=== PATIENT | female | born 1970 | race Caucasian/White ===

== ENCOUNTER 2017-02-20 11:24 | Day surgery (SDC) | payer BC ==
[~2017-02-20 11:24] MED LIST: Lactated Ringers 1,000 ML IV SCH; Lidocaine 1%/Sod Bicarbonate in NS 8.4% 1 ML Syringe IV PRN; Sodium Chloride 0.9% 10 ML Syringe FLUSH PRN
[2017-02-20] MEDS ORDERED: Midazolam 1 MG/ML 2 ML SDV ONE (12:08)
[2017-02-20] MEDS ORDERED: fentaNYL 250 MCG/5 ML SDV ONE (12:08)
[2017-02-20] MEDS ORDERED: Propofol 200 MG/20 ML SDV ONE ×2 (12:08)
[2017-02-20] MEDS ORDERED: Lidocaine 1% 4 ML ONE (12:09)
--- NOTE | 2017-02-20 12:22 | PCM.PREANE ---
Preanesthetic Assessment - Procedure Proposed Procedure: Right Achilies Debridement, Rt Calcaneal exosectomy - Anesthesia/Transfusion/Family Hx Anesthesia History: Prior Anesthesia Without Reaction Family History of Anesthesia Reaction: No Transfusion History: Prior Transfusion Without Reaction Intubation History: Unknown - Review of Systems General: No Symptoms Pulmonary: No Symptoms Cardiovascular: No Symptoms Gastrointestinal: No Symptoms Neurological: No Symptoms Other: Reports: None - Physical Assessment NPO Status Date: 02/19/17 NPO Status Time: 21:00 O2 Sat by Pulse Oximetry: 99 Respiratory Rate: 16 Vital Signs: Last Vital Signs Temp 37.3 C 02/20/17 11:35 Pulse 70 02/20/17 11:35 Resp 16 02/20/17 11:35 BP 119/84 02/20/17 11:35 Pulse Ox 99 02/20/17 11:35 Height: 1.65 m Weight: 82.554 kg ASA Class: 2 Mental Status: Alert & Oriented x3 Airway Class: Mallampati = 1 Dentition: Reports: Normal Dentition Thyro-Mental Finger Breadths: 3 Mouth Opening Finger Breadths: 5 ROM/Head Extension: Full Lungs: Clear to Auscultation, Normal Respiratory Effort Cardiovascular: Regular Rate, Regular Rhythm - Lab Values: Laboratory Last Values Urine HCG, Qual Negative (NEGATIVE) 02/20/17 11:35 MRSA (PCR) Negative 02/11/17 15:33 - Allergies Allergies/Adverse Reactions: Allergies Allergy/AdvReac Type Severity Reaction Status Date / Time cinnamon Allergy Cannot Verified 02/20/17 12:19 Remember orange Allergy Cannot Verified 02/20/17 12:19 Remember - Blood Blood Available: No Product(s) Available: None - Anesthesia Plan Pre-Op Medication Ordered: None - Acknowledgements Anesthesia Type Planned: General Anesthesia Pt an Appropriate Candidate for the Planned Anesthesia: Yes Alternatives and Risks of Anesthesia Discussed w Pt/Guardian: Yes Pt/Guardian Understands and Agrees with Anesthesia Plan: Yes PreAnesthesia Questionnaire HEENT History: Reports: None Cardiovascular History: Reports: None Respiratory History: Reports: None Gastrointestinal History: Reports: None Genitourinary History: Reports: Other (See Below) Other Genitourinary History: only has one kidney -congential right kidney 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: Other (See Below) Other OB/BYN History: irregular menses, menorrhagia, hysteroscopy Musculoskeletal History: Reports: Other (See Below) Neurological History: Reports: None Psychiatric History: Reports: Anxiety, Depression Endocrine/Metabolic History: Reports: Hypothyroidism Hematologic History: Reports: Anemia Immunologic History: Reports: None Oncologic (Cancer) History: Reports: None - Past Surgical History Head Surgeries/Procedures: Reports: None HEENT Surgical History: Reports: None Cardiovascular Surgical History: Reports: None Respiratory Surgical History: Reports: None GI Surgical History: Reports: None Female Surgical History: Reports: Section, D&C, Endometrial Ablation Endocrine Surgical History: Reports: None Neurological Surgical History: Reports: None Musculoskeletal Surgical History: Reports: Other (See Below) Other Musculoskeletal Surgeries/Procedures:: 2 back surgeries, right ankle surgery, foot surgery Oncologic Surgical History: Reports: None Dermatological Surgical History: Reports: Plastic Surgical Reconstruction/Repair - SUBSTANCE USE Smoking Status *Q: Former Smoker Recreational Drug Use History: No - HOME MEDS Home Medications: Home Meds Levothyroxine [Synthroid] 50 mcg PO DAILY 05/28/15 [History] Multivitamin [Multivitamins] 1 cap PO DAILY 05/28/15 [History] Escitalopram [Lexapro] 20 mg PO DAILY 02/19/17 [History] busPIRone [Buspar] 15 mg PO BID 02/19/17 [History] rOPINIRole [Requip] 2 mg PO BEDTIME 02/19/17 [History] Aspirin 325 mg PO BID #84 tablet 02/20/17 [Rx] Cyclobenzaprine [Flexeril] 10 mg PO Q8H PRN #40 tablet 02/20/17 [Rx] Hydrocodone/Acetaminophen [[place] 5-325 Tablet] 1 - 2 each PO Q6H PRN #40 tablet 02/20/17 [Rx] - CURRENT (IN HOUSE) MEDS Current Meds: Current Medications Lactated Ringer's (Ringers, Lactated) 1,000 mls @ 125 mls/hr IV ASDIRECTED MARK Stop: 02/20/17 16:00 Lidocaine/Sodium Bicarbonate (Buffered Lidocaine 1% In Ns 8.4%) 0.25 ml IV ONETIME PRN PRN Reason: Prior to IV Start Stop: 02/20/17 16:00 Sodium Chloride (Saline Flush) 10 ml FLUSH ASDIRECTED PRN PRN Reason: Keep Vein Open Stop: 02/20/17 16:00 Discontinued Medications Fentanyl (Sublimaze) Confirm Administered Dose 250 mcg .ROUTE .STK-MED ONE Stop: 02/20/17 12:09 Lidocaine HCl (Xylocaine-Mpf 1%) Confirm Administered Dose 4 mls @ as directed .ROUTE .STK-MED ONE Stop: 02/20/17 12:10 Midazolam HCl (Versed 1 Mg/Ml) Confirm Administered Dose 2 mg .ROUTE .STK-MED ONE Stop: 02/20/17 12:09 Propofol (Diprivan 20 Ml) Confirm Administered Dose 200 mg .ROUTE .STK-MED ONE Stop: 02/20/17 12:09 Propofol (Diprivan 20 Ml) Confirm Administered Dose 200 mg .ROUTE .STK-MED ONE Stop: 02/20/17 12:09
[2017-02-20] MEDS ORDERED: Lactated Ringers 1,000 ML ONE ×2 (12:51→14:12)
[2017-02-20] MEDS ORDERED: Rocuronium 50 MG/5 ML Vial ONE (12:57)
[2017-02-20] MEDS ORDERED: Ketorolac 30 MG/ML SDV ONE (12:57)
[2017-02-20] MEDS ORDERED: Ondansetron 4 MG/2 ML SDV ONE (12:57)
[2017-02-20] MEDS ORDERED: Dexamethasone 4 MG/ML SDV ONE (12:57)
[2017-02-20] MEDS ORDERED: HYDROmorphone 1 MG/ML Syringe ONE ×2 (13:01→14:23)
[2017-02-20] MEDS ORDERED: Bupivacaine 0.25% 30 ML SDV ONE (13:05)
[2017-02-20] MEDS ORDERED: fentaNYL 100 MCG/2 ML SDV IVPUSH PRN (14:19)
[2017-02-20] MEDS ORDERED: diphenhydrAMINE 50 MG/ML SDV IVPUSH PRN (14:19)
[2017-02-20] MEDS ORDERED: HYDROmorphone 0.5 MG/0.5 ML Syringe IVPUSH PRN (14:19)
[2017-02-20] MEDS ORDERED: Meperidine PF 50 MG/ML Syringe IVPUSH PRN (14:19)
[2017-02-20] MEDS ORDERED: Ondansetron 4 MG/2 ML SDV IVPUSH PRN (14:19)
[2017-02-20] MEDS ORDERED: Midazolam 1 MG/ML 2 ML SDV IVPUSH PRN (14:19)
[2017-02-20] MEDS ORDERED: fentaNYL 100 MCG/2 ML SDV ONE (14:30)
[2017-02-20] MEDS ORDERED: Neostigmine Methylsulfate 10 MG/10 ML MDV ONE (14:32)
[2017-02-20] MEDS ORDERED: cloNIDine 1,000 MCG/10 ML SDV ONE ×2 (15:04)
[2017-02-20] MEDS ORDERED: Metoclopramide 10 MG/2 ML SDV ONE (15:33)
[2017-02-20] MEDS ORDERED: Promethazine 6.25 MG in Sodium Chloride 0.9% 9 ML IV PRN (15:48)
--- NOTE | 2017-02-20 15:52 | PCM.POSTAN ---
POST ANESTHESIA ASSESSMENT - MENTAL STATUS Mental Status: Alert - VITAL SIGNS Pulse Rate: 108 SaO2: 98 Resp Rate: 18 Blood Pressure: 123/73 Temperature: 97.1 C - RESPIRATORY Respiratory Status: Respiratory Rate WNL, Airway Patent, O2 Saturation Stable - CARDIOVASCULAR CV Status: Pulse Rate WNL, Blood Pressure Stable - GASTROINTESTINAL GI Status: No Symptoms - PAIN Pain Score: 0 - POST OP HYDRATION Hydration Status: Adequate & Stable
--- NOTE | 2017-02-20 16:56 | CR ---
Right ankle: Seven fluoroscopic spot views were obtained of the calcaneus. Study shows surgery at the Achilles tendon attachment. Incidental plantar spur is seen. Fluoroscopy time is given as 13.6 seconds. Impression: 1. Operative study as noted above. Diagnostic code #2
[2017-02-20] MEDS ORDERED: Acetaminophen/HYDROcodone 325-5 MG Tab PO ONE (17:10)
[2017-02-20 18:05] VITALS: BP 116/69
--- NOTE | 2017-02-27 08:30 | PCM.OPNOTE ---
- General Post-Op/Procedure Note Date of Surgery/Procedure: 02/20/17 Operative Procedure(s): right achilles debridement with calcaneal ostectomy Pre Op Diagnosis: right achilles tendonitis with calcaneal spur Post-Op Diagnosis: Same Anesthesia Technique: General ET Tube, Local Primary Surgeon: Damien Wheeler Anesthesia Provider: Jessy Patrick Cushion Maker Hand: Sandrita Jiménez EBL in mLs: 5 Complications: None Condition: Good
--- NOTE | 2017-02-27 09:16 | OR ---
DATE OF OPERATION: 02/20/2017 SURGEON: Damien Wheeler MD OPERATION PERFORMED: Right Achilles tendon debridement of the calcaneal ostectomy. PREOPERATIVE DIAGNOSIS: Right Achilles tendinitis with calcaneal spur. POSTOPERATIVE DIAGNOSIS: Right Achilles tendinitis with calcaneal spur. ANESTHESIA: General endotracheal intubation with local. ANESTHESIA PROVIDER: Domingo Echevarria. DYEING MACHINE TENDER: Sandrita Jiménez PA-C. ESTIMATED BLOOD LOSS: 5 mL. COMPLICATIONS: None. CONDITION: Stable. DESCRIPTION OF PROCEDURE: The patient was identified in the preoperative holding area where proper site was marked and identified by the surgeon. The patient was taken back to the operating theater where after adequate anesthesia, the patient was placed in the prone position. All bony prominences were well padded and the right lower extremity was then sterilely prepped and draped in the usual sterile fashion. OR time-out was performed. The patient received 2 g IV Ancef. Right lower extremity was then exsanguinated. Tourniquet was insufflated to 250 mmHg. The previous incision just to the medial side of the Achilles tendon was utilized along with extending it proximally and distally for better visualization. The skin incision was then made. There was significant scar tissue. This paratenon was identified both proximally and distally and the Achilles tendon was identified. There was noted to be significant thickening distally especially to the lateral aspect of the calcaneus. There was also noted to be a calcaneal spur noted on the lateral side near the attachment still that was palpable through the skin. At this time, the lateral half of the Achilles tendon was detached and the Achilles tendon was then debrided on both medial and lateral side to reduce the thickness of it secondary to the significant thickening. At this time, with use of a microsagittal saw, calcaneal ostectomy was then performed at the lateral side under direct visualization using fluoroscopy. At this time, there was noted to be no calcaneal spur. A rasp was used to smooth out the borders. At this time, 2 Arthrex SpeedBridge anchors were then used to repair the lateral side back down and then a #2 FiberWire was used to whipstitch the medial and lateral sides of the tendon together to better strength of the construct. At this time, adequate saline was then irrigated through the wound. A 3-0 Vicryl was used subcutaneously and 4-0 nylon was used for closure of the skin. The patient was placed in a sterile soft dressing and a splint and tolerated the procedure well. HE /[id number]
== END 2017-02-20 17:44 | disposition home or self-care (01) ==
LOC: JD.SDS 11:24
PROVIDERS: ATTEND Orthopaedic Surgery
DX: M76.61 Achilles tendinitis, right leg (principal); M77.31 Calcaneal spur, right foot; F41.9 Anxiety disorder, unspecified; Z91.018 Allergy to other foods; Z79.899 Other long term (current) drug therapy; Z87.891 Personal history of nicotine dependence; Z98.890 Other specified postprocedural states
CPT/HCPCS: 28118; 76000; 81025; 87641; A9270; C1713; J0735; J1100; J1170; J1885; J2250; J2405; J2710; J2765; J3010; J3490; J7120; 01470; J2704

== ENCOUNTER 2017-07-17 06:14 | Day surgery (SDC) | payer BC ==
[~2017-07-17 06:14] MED LIST changes: +Lidocaine 1%/Sod Bicarbonate in NS 8.4% 1 ML Syringe IDERM PRN; -Lidocaine 1%/Sod Bicarbonate in NS 8.4% 1 ML Syringe IV PRN
[2017-07-17] MEDS ORDERED: Bupivacaine 0.25% 30 ML SDV ONE (06:37)
--- NOTE | 2017-07-17 07:00 | PCM.PREANE ---
Preanesthetic Assessment - Anesthesia/Transfusion/Family Hx Anesthesia History: Prior Anesthesia Without Reaction Family History of Anesthesia Reaction: No Transfusion History: No Prior Transfusion(s) Intubation History: Unknown - Review of Systems General: No Symptoms Pulmonary: No Symptoms Cardiovascular: No Symptoms Gastrointestinal: No Symptoms Neurological: No Symptoms Other: Reports: Thyroid Problems (hypothyroid) - Physical Assessment NPO Status Date: 07/16/17 NPO Status Time: 00:00 Pulse: 64 O2 Sat by Pulse Oximetry: 96 Respiratory Rate: 16 Blood Pressure: 136/94 Temperature: 36.9 C Height: 1.63 m Weight: 89.358 kg ASA Class: 2 Mental Status: Alert & Oriented x3 Airway Class: Mallampati = 1 Dentition: Reports: Broken Tooth/Teeth Thyro-Mental Finger Breadths: 3 Mouth Opening Finger Breadths: 3 ROM/Head Extension: Full Lungs: Clear to Auscultation, Normal Respiratory Effort Cardiovascular: Regular Rate, Regular Rhythm, No Murmurs - Lab Values: Laboratory Last Values WBC 6.40 K/mm3 (3.98-10.04) 07/17/17 06:42 RBC 4.38 M/mm3 (3.98-5.22) 07/17/17 06:42 Hgb 13.5 gm/L (11.2-15.7) 07/17/17 06:42 Hct 40.5 % (34.1-44.9) 07/17/17 06:42 MCV 92.5 fl (79.4-94.8) 07/17/17 06:42 MCH 30.8 pg (25.6-32.2) 07/17/17 06:42 MCHC 33.3 g/dl (32.2-35.5) 07/17/17 06:42 RDW Std Deviation 40.6 fL (36.4-46.3) 07/17/17 06:42 Plt Count 227 K/mm3 (182-369) 07/17/17 06:42 MPV 11.1 fl (9.4-12.3) 07/17/17 06:42 Neut % (Auto) 51.0 % (34.0-71.1) 07/17/17 06:42 Lymph % (Auto) 32.5 % (19.3-51.7) 07/17/17 06:42 [place] % (Auto) 6.9 % (4.7-12.5) 07/17/17 06:42 Eos % (Auto) 9.1 (0.7-5.8) H 07/17/17 06:42 Baso % (Auto) 0.3 % (0.1-1.2) 07/17/17 06:42 Neut # (Auto) 3.27 K/mm3 (1.56-6.13) 07/17/17 06:42 Lymph # (Auto) 2.08 K/mm3 (1.18-3.74) 07/17/17 06:42 [place] # (Auto) 0.44 K/mm3 (0.24-0.36) H 07/17/17 06:42 Eos # (Auto) 0.58 K/mm3 (0.04-0.36) H 07/17/17 06:42 Baso # (Auto) 0.02 K/mm3 (0.01-0.08) 07/17/17 06:42 Urine HCG, Qual Negative (NEGATIVE) 07/17/17 06:20 MRSA (PCR) Negative 07/09/17 13:14 - Allergies Allergies/Adverse Reactions: Allergies Allergy/AdvReac Type Severity Reaction Status Date / Time cinnamon Allergy Cannot Verified 07/16/17 15:11 Remember orange Allergy Cannot Verified 07/16/17 15:11 Remember - Blood Blood Available: No Product(s) Available: None - Anesthesia Plan Pre-Op Medication Ordered: None - Acknowledgements Anesthesia Type Planned: General Anesthesia Pt an Appropriate Candidate for the Planned Anesthesia: Yes Alternatives and Risks of Anesthesia Discussed w Pt/Guardian: Yes Pt/Guardian Understands and Agrees with Anesthesia Plan: Yes PreAnesthesia Questionnaire HEENT History: Reports: Hard of Hearing Cardiovascular History: Reports: None Respiratory History: Reports: None Gastrointestinal History: Reports: None Genitourinary History: Reports: Other (See Below) Other Genitourinary History: only has one kidney -congential right kidney 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, Other (See Below) Other OB/BYN History: irregular menses, menorrhagia, hysteroscopy Musculoskeletal History: Reports: Other (See Below) Other Musculoskeletal History: restless leg syndrome Neurological History: Reports: None Psychiatric History: Reports: Anxiety, Depression Endocrine/Metabolic History: Reports: Hypothyroidism Hematologic History: Reports: Anemia Immunologic History: Reports: None Oncologic (Cancer) History: Reports: None - Past Surgical History Head Surgeries/Procedures: Reports: None HEENT Surgical History: Reports: None Cardiovascular Surgical History: Reports: None Respiratory Surgical History: Reports: None GI Surgical History: Reports: None Female Surgical History: Reports: Section, D&C, Endometrial Ablation Endocrine Surgical History: Reports: None Neurological Surgical History: Reports: None Musculoskeletal Surgical History: Reports: Other (See Below) Other Musculoskeletal Surgeries/Procedures:: 2 back surgeries, right ankle surgery, foot surgery Oncologic Surgical History: Reports: None Dermatological Surgical History: Reports: Plastic Surgical Reconstruction/Repair - SUBSTANCE USE Smoking Status *Q: Former Smoker Tobacco Use Within Last Twelve Months: No Second Hand Smoke Exposure: No Days Per Week of Alcohol Use: 1 Number of Drinks Per Day: 0 Total Drinks Per Week: 0 Recreational Drug Use History: No - HOME MEDS Home Medications: Home Meds Levothyroxine [Synthroid] 50 mcg PO DAILY 05/28/15 [History] Multivitamin [Multivitamins] 1 cap PO DAILY 05/28/15 [History] Escitalopram [Lexapro] 20 mg PO DAILY 02/19/17 [History] busPIRone [Buspar] 15 mg PO BID 02/19/17 [History] rOPINIRole [Requip] 2 mg PO BEDTIME 02/19/17 [History] Acetaminophen/HYDROcodone [[place] 325-5 MG] 1 - 2 tab PO Q6H PRN #40 tablet 07/17 [Rx] Aspirin 325 mg PO BID #84 tab 07/17/17 [Rx] - CURRENT (IN HOUSE) MEDS Current Meds: Current Medications Lactated Ringer's (Ringers, Lactated) 1,000 mls @ 125 mls/hr IV ASDIRECTED MARK Stop: 07/17/17 23:00 Last Admin: 07/17/17 06:40 Dose: 125 mls/hr Lidocaine/Sodium Bicarbonate (Buffered Lidocaine 1% In Ns 8.4%) 0.25 ml IDERM ONETIME PRN PRN Reason: Prior to IV Start Stop: 07/17/17 18:00 Last Admin: 07/17/17 06:39 Dose: 0.25 ml Sodium Chloride (Saline Flush) 10 ml FLUSH ASDIRECTED PRN PRN Reason: Keep Vein Open Stop: 07/17/17 18:00 Discontinued Medications Bupivacaine HCl (Marcaine 0.25%) Confirm Administered Dose 30 ml .ROUTE .[facility] ONE Stop: 07/17/17 06:38
[2017-07-17] MEDS ORDERED: Midazolam 1 MG/ML 2 ML SDV ONE (07:06)
[2017-07-17] MEDS ORDERED: Lidocaine 1% 4 ML ONE (07:06)
[2017-07-17] MEDS ORDERED: fentaNYL 250 MCG/5 ML SDV ONE (07:06)
[2017-07-17] MEDS ORDERED: Ondansetron 4 MG/2 ML SDV ONE (07:06)
[2017-07-17] MEDS ORDERED: Rocuronium 50 MG/5 ML Vial ONE (07:06)
[2017-07-17] MEDS ORDERED: Propofol 200 MG/20 ML SDV ONE (07:06)
[2017-07-17] MEDS ORDERED: ceFAZolin 1 GM Vial ONE (07:07)
[2017-07-17] MEDS ORDERED: diphenhydrAMINE 50 MG/ML SDV ONE (07:42)
[2017-07-17] MEDS ORDERED: Lactated Ringers 1,000 ML ONE ×2 (07:42→09:07)
[2017-07-17] MEDS ORDERED: Dexamethasone 4 MG/ML 5 ML MDV ONE (07:42)
[2017-07-17] MEDS ORDERED: HYDROmorphone 0.5 MG/0.5 ML Syringe ONE ×2 (07:47)
[2017-07-17] MEDS ORDERED: HYDROmorphone 0.5 MG/0.5 ML Syringe IVPUSH PRN (09:25)
[2017-07-17] MEDS ORDERED: Ketorolac 30 MG/ML SDV IVPUSH PRN (09:25)
--- NOTE | 2017-07-17 09:27 | PCM.POSTAN ---
POST ANESTHESIA ASSESSMENT - MENTAL STATUS Mental Status: Alert, Oriented - VITAL SIGNS Pulse Rate: 114 SaO2: 99 Resp Rate: 20 Blood Pressure: 144/95 Temperature: 36.2 C - RESPIRATORY Respiratory Status: Respiratory Rate WNL, Airway Patent, O2 Saturation Stable, Supplemental Oxygen - CARDIOVASCULAR CV Status: Pulse Rate WNL, Blood Pressure Stable - GASTROINTESTINAL GI Status: No Symptoms - PAIN Pain Score: 0 - POST OP HYDRATION Hydration Status: Adequate & Stable - OBSERVATIONS Free Text/Narrative:: no anesthesia complications noted
[2017-07-17] MEDS: fentaNYL 100 MCG/2 ML SDV IVPUSH PRN ×2 (09:38→10:25)
--- NOTE | 2017-07-17 09:57 | CR ---
Right calcaneus: Three fluoroscopic spot views were obtained utilizing C-arm device of the right calcaneus. Comparison: Previous right calcaneus study of 02/20/17. Evidence of surgery with bony resection is noted within the posterior and superior calcaneus. Fluoroscopy time given as 29.2 seconds. Impression: 1. Procedural study. Diagnostic code #2
[2017-07-17] MEDS ORDERED: diphenhydrAMINE 50 MG/ML SDV IVPUSH ONE (10:29)
[2017-07-17 12:43] VITALS: BP 134/77
--- NOTE | 2017-07-24 08:21 | PCM.OPNOTE ---
- General Post-Op/Procedure Note Date of Surgery/Procedure: 07/17/17 Operative Procedure(s): revision right achilles tendon debridement with calcaneal ostectomy Pre Op Diagnosis: continued right achilles insertional pain Post-Op Diagnosis: Same Anesthesia Technique: General ET Tube, Local Primary Surgeon: Damien Wheeler Anesthesia Provider: Jesus Manuel Jhaveri Express Manager: Sandrita Jiménez in mLs: 5 Complications: None Condition: Good
--- NOTE | 2017-07-24 10:59 | OR ---
DATE OF OPERATION: 07/17/2017 SURGEON: Damien Wheeler MD OPERATION PERFORMED: Revision right Achilles tendon debridement with calcaneal exostectomy. PREOPERATIVE DIAGNOSIS: Continued right Achilles tendon insertional pain. POSTOPERATIVE DIAGNOSIS: Continued right Achilles tendon insertional pain. ANESTHESIA: General endotracheal intubation with local. ANESTHESIA PROVIDER: Jesus Manuel Jhaveri CRNA. SWITCHING OPERATOR: Sandrita Jiménez PA-C. ESTIMATED BLOOD LOSS: 5 mL. COMPLICATIONS: None. CONDITION: Stable. DESCRIPTION OF PROCEDURE: The patient was identified in the preop holding area, where proper site was marked and identified by the surgeon. The patient was taken back to the operating theater, where after adequate anesthesia, the patient was placed in a prone position. Wedges were placed. All bony prominences were well padded. The patient's neck was in neutral position. At this time, the right lower extremity was then sterilely prepped and draped in the usual sterile fashion. OR time-out was performed. The patient received 2 g IV Ancef. Right lower extremity was then exsanguinated. Tourniquet was then insufflated to 250 mmHg. The previous incision was utilized. This was taken down to the Achilles tendon. The Achilles tendon was intact with no signs of infection, at this time, it was brought full-thickness down the Achilles tendon was again divided and split, and insertional region was lifted off on both sides. The previous suture was removed. A FiberWire through the Achilles tendon insertional region to the previous anchors were noted to be in the bone still. At this time, under C-arm fluoroscopy, a revision calcaneal exostectomy was then performed making sure to take a significant amount especially on the lateral side where the patient had pinpoint tenderness. A rasp was then used to smooth all borders down and was noted to have a significant reduction in the posterior calcaneal bony structures. At this time, it was noted to be have good smooth borders and had no opposition of the bone to the skin. The Achilles tendon was then debrided of excess tissue roughly 4 sq. cm and any scar tissue. Two 4.75 mm Arthrex SwiveLock anchors were then placed. Using the SpeedBridge tape this was brought through the Achilles tendons and then 2 more 4.75 mm Arthrex SwiveLock anchors were placed distally at the insertional site, tension was applied, and then the Achilles tendon had good opposition next to the bone of the exostectomy site. The patient had good dorsiflexion with no signs of Achilles contractures, so Achilles lengthening was not performed. At this time, the patient had good opposition of the insertion of the area of the Achilles tendon and there was no bony exostoses noted impinging on the skin or the tendon. At this time, adequate saline was irrigated through the wound. A 3-0 Vicryl was used for closure subcutaneously and nylon was used for the skin. The patient tolerated the procedure well and sent to PACU in stable condition. MMODAL /[id number]
== END 2017-07-17 12:25 | disposition home or self-care (01) ==
LOC: JD.SDS 06:14
PROVIDERS: ATTEND Orthopaedic Surgery
DX: M76.61 Achilles tendinitis, right leg (principal); M76.821 Posterior tibial tendinitis, right leg; Z87.891 Personal history of nicotine dependence; Z79.899 Other long term (current) drug therapy; Z91.048 Other nonmedicinal substance allergy status
CPT/HCPCS: 28118; 28200; 36415; 76000; 80048; 81025; 85025; 87641; C1713; J0690; J1100; J1170; J1200; J2001; J2250; J2405; J3010; J3490; J7120; 01480; J2704